=== PATIENT | female | born 2005 | race Caucasian/White ===

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

== ENCOUNTER 2024-04-16 10:54 | Emergency (ER) | payer MEDICAID ==
[~2024-04-16] VITALS: Ht 149.9 cm; Wt 61.5 kg
[2024-04-16 10:58] VITALS: BP 127/66; PULSE 97; RESP 18; TEMP 98.1; O2SAT 98
== END 2024-04-16 12:29 | disposition home or self-care (01) ==
LOC: ER 10:54
DX: M79.602 Pain in left arm (principal)
CPT/HCPCS: 73060; 99283

== ENCOUNTER 2024-06-05 17:30 | Emergency (ER) | payer MEDICAID ==
[~2024-06-05] VITALS: Ht 149.9 cm; Wt 59.1 kg
[2024-06-05 18:21] LABS: BILIRUBIN,URINE NEGATIVE (Neg); CLARITY,URINE SLIGHTLY CLOUDY (Clear); COLOR,URINE YELLOW (Yellow); GLUCOSE, URINE NEGATIVE (Neg); KETONES,URINE NEGATIVE (Neg); LEUKOCYTE ESTERASE ,URINE SMALL (Neg); NITRITES, URINE NEGATIVE (Neg); OCCULT BLOOD,URINE MODERATE (Neg); PH,URINE 5.5 (4.8-8.0); PROTEIN,URINE NEGATIVE (Neg); UROBILINOGEN,URINE 0.2 E.U/dL (0.2-1.0)
[2024-06-05 18:22] LABS: URINE HCG NEGATIVE (NEG)
[2024-06-05 18:36] LABS: UA COLLECTION TYPE CLN CATCH MIDSTREAM
[2024-06-05 18:37] LABS: SQUAMOUS EPITHELIAL CELL,UR FEW /LPF (FEW)
[2024-06-05 18:38] LABS: BACTERIA,URINE 1+ /HPF (Neg); RBC,URINE 50-100 /HPF (0-2)
[2024-06-05] MEDS ORDERED: METR-159 PO (20:13)
[2024-06-05] MEDS ORDERED: DIF150T PO (20:13)
[2024-06-05] MEDS ORDERED: CEPH500C82 PO (20:13)
[2024-06-05 20:27] VITALS: BP 106/60; PULSE 78; RESP 14; TEMP 97.6; O2SAT 99
== END 2024-06-05 20:27 | disposition home or self-care (01) ==
LOC: ER 17:30
DX: N76.0 Acute vaginitis (principal); N39.0 Urinary tract infection, site not specified; Z79.2 Long term (current) use of antibiotics; Z79.899 Other long term (current) drug therapy
CPT/HCPCS: 81001; 81025; 87088; 87210; 99283